=== PATIENT | male | born 1950 | race Caucasian/White ===

== ENCOUNTER 2017-12-01 16:05 | Inpatient (IN) | payer OTHER ==
[~2017-12-01] VITALS: Ht 177.8 cm; Wt 78.5 kg
[2017-12-23] VITALS (12 sets, daily range): BP systolic 95–147; BP diastolic 56–83; PULSE 65–103; TEMP 97.2–98
[2017-12-23] MEDS ORDERED: TOPAMAX 100MG100 M1 PO (06:37)
[2017-12-23] MEDS ORDERED: CRESTOR 10MG10 MG PO (06:38)
[2017-12-23] MEDS ORDERED: PRILOSEC 20MG20 MG PO (06:38)
[2017-12-23] MEDS ORDERED: LEXAPRO 10MG10 MG PO (06:39)
[2017-12-23] MEDS ORDERED: FLOMAX 0.40.4 MG/CAP PO (06:39)
[2017-12-23] MEDS ORDERED: NAPROSYN500 MG PO (06:40)
[2017-12-23] MEDS ORDERED: MULTIPLE VITAMI1 CAP PO (06:40)
[2017-12-23] MEDS ORDERED: ASPIRIN 81M81 MG/TA2 PO (06:41)
[2017-12-23] MEDS ORDERED: LUTEIN20 M1 PO (06:41)
[2017-12-23 14:23] LABS: HEMOGLOBIN 11.7 g/dl (13.5-18.0)
[2017-12-23 14:24] LABS: HEMATOCRIT 36.9 % (42.0-52.0)
[2017-12-24] VITALS (9 sets, daily range): BP systolic 99–122; BP diastolic 57–76; PULSE 65–73; TEMP 97.5–98.8
[2017-12-24 05:54] LABS: BASO % 0.3 % (0.0-2.0); EOS % 0.2 % (0-4.0); GRAN # 7.4 (1.4-6.5); GRAN % 70.4 % (42.2-75.2); HEMOGLOBIN 10.4 g/dl (13.5-18.0); LYMPH # 1.7 (1.2-3.4); LYMPH % 16.1 % (20.0-51.0); MEAN CELL VOLUME 84 fl (80.0-100.0); MEAN CORPUSCULAR HEMOGLOBIN 26 pg (27.0-31.0); MEAN CORPUSCULAR HGB CONC 31 g/dl (33.0-37.0); MEAN PLATELET VOLUME 12.7 fl (7.4-10.4); MONO # 1.3 (0.1-0.6); MONO % 12.4 % (1.7-9.3); PLATELET COUNT 148 K/mm3 (130-400); RED BLOOD COUNT 4.01 M/mm3 (4.20-5.60); REDCELL DISTRIBUTION WIDTH-CV 15.8 % (11.5-14.5)
[2017-12-24 06:10] LABS: CALCIUM 8.2 mg/dL (8.4-10.2); CREATININE, serum 0.8 mg/dL (0.66-1.25); POTASSIUM 4.8 mmol/L (3.4-5.0)
[2017-12-24 06:16] LABS: HEMATOCRIT 33.6 % (42.0-52.0)
[2017-12-25 00:36] VITALS: BP 118/72; PULSE 74; TEMP 98.6
[2017-12-25 03:22] VITALS: BP 137/80; PULSE 93; TEMP 98.7
[2017-12-25 09:00] VITALS: BP 123/74; PULSE 78; TEMP 98.7
== END 2017-12-25 13:30 | disposition home or self-care (01) | DRG 708 ==
LOC: SURG 12-23 05:23 → INPTSU 12-23 05:23 → SURG 12-23 07:30
PROVIDERS: Urology
PROC: 0VT00ZZ Resection of Prostate, Open Approach (ICD-10-PCS; principal; 2017-12-23 07:30)
DX: C61 Malignant neoplasm of prostate (principal); E78.5 Hyperlipidemia, unspecified; K21.9 Gastro-esophageal reflux disease without esophagitis
CPT/HCPCS: A9284; J0690; J1100; J2250; J2370; J2405; J2704; J2765; J2795; J3010; J3480; J7030; J7050; J7120